=== PATIENT | female | born 1945 | race Caucasian/White ===

== ENCOUNTER 2016-09-11 14:15 | Inpatient (IN) | payer MEDICARE ==
[2016-09-03 21:07] LABS: ASCORBIC ACID (UR NOT ORDER) 40 (NEG); BILIRUBIN, URINE NEGATIVE (NEG); KETONE, URINE NEGATIVE (NEG); LEUKOCYTE ESTERASE(NOT OR SMALL (NEG); WBC (NOT ORDERED) (RFLEX) 4 (0-5)
[2016-09-03 21:25] LABS: BASOPHILS 0.4 %; BASOPHILS ABSOLUTE 0.03 10/3/uL (0.0-0.16); EOSINOPHILS 2.6 %; HEMATOCRIT 36.9 % (36.0-48.0); HEMOGLOBIN 12.2 g/dL (12.0-16.0); IMMATURE GRANULOCYTES 0.3 %; IMMATURE GRANULOCYTES ABSOLUTE 0.02 10/3/uL (0.0-0.11); LYMPHOCYTES 18.7 %; LYMPHOCYTES ABSOLUTE 1.42 10/3/uL (0.67-4.30); MANUAL DIFF NO %; MEAN CORPUS HGB CONC 33.1 g/dL (32.0-36.0); MEAN CORPUSCULAR HEMOGLOB 30.7 pg (26.0-34.0); MEAN CORPUSCULAR VOLUME 92.9 fL (80-100); MEAN PLATELET VOLUME 9.9 fL (9.2-13.0); MONOCYTES 8.8 %; MONOCYTES ABSOLUTE 0.67 10/3/uL (0.21-1.20); NEUTROPHILS 69.2 %; NEUTROPHILS ABSOLUTE 5.25 10/3/uL (2.02-8.40); PLATELET COUNT 307 10/3/uL (150-400); RBC DISTRIBUTION WIDTH 14.1 % (12.0-16.0); RED CELL COUNT 3.97 10/6/uL (4.0-5.6); WHITE BLOOD CELLS 7.6 10/3/uL (4.5-10.5)
[2016-09-03 21:32] LABS: PROTIME (NOT ORD) 13.1 SEC (12.0-14.5)
[2016-09-03 21:43] LABS: A/G RATIO 1.2 (0.7-1.9); ALBUMIN 4.1 G/DL (3.5-5.0); ALKALINE PHOSPHATASE 117 U/L (45-117); BUN (BLOOD UREA NITROGEN) 16 MG/DL (6-23); CALCIUM, SERUM 9.5 MG/DL (8.5-10.4); CHLORIDE, SERUM 93 MMOL/L (96-112); CO2 (CARBON DIOXIDE) 29 MMOL/L (24-34); CREATININE 1.09 MG/DL (0.55-1.02); GFR AFRICAN AMERICAN 60 ML/MIN (>=60); GFR NON AFRICAN AMERICAN 51 ML/MIN (>=60); GLOBULIN 3.5 G/DL (2.5-4.1); GLUCOSE, SERUM 91 MG/DL (60-99); POTASSIUM, SERUM 3.6 MMOL/L (3.5-5.3); SGOT(AST) 25 U/L (5-40); SGPT(ALT) 30 U/L (5-65); SODIUM, SERUM 137 MMOL/L (135-148); TOTAL BILIRUBIN 0.6 MG/DL (0-1.2); TOTAL PROTEIN 7.6 G/DL (6.0-8.5)
--- NOTE | ~2016-09-11 | DS ---
Discharge Summary [place] [id number] [facility] [place]. 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 2. Hypertension. 3. Osteoarthritis. 4. Cerebral palsy. 5. Sleep apnea. CONSULTATIONS: None. PROCEDURES PERFORMED: Right total knee revision arthroplasty on 09/11/2016. PATHOLOGY: Bone and soft tissue, right knee - orthopedic hardware, chronic reactive changes (no crystals). MEDICATIONS: Amitriptyline 150 mg at bedtime, Norvasc 10 mg at bedtime, vitamin C 1000 mg daily, Lipitor 10 mg at bedtime, Flexeril 10 mg three times a day, Restasis one drop twice a day in both, Caltrate plus D 600 mg twice a day, Colace 100 mg four times a day, Lovenox 30 mg subcutaneously twice a day, Pepcid 20 mg twice a day, ferrous sulfate 300 mg with breakfast and supper, levothyroxine one and a half tablets every morning, Carolyne 180 mg every morning, Hyzaar one tablet every morning, Mag-Ox 400 mg twice a day, Dolophine 10 mg three to four times per day, Theragran one tablet with breakfast, fish oil 1000 mg twice a day, Protonix 40 mg twice a day, MiraLAX powder one packet times a day as needed, Senokot two tablets at bedtime, Carafate 1 g before meals and at bedtime, Flomax 0.4 mg at bedtime, Dulera two puffs via inhaler twice a day as instructed, Mylanta 30 mL as needed, Dulcolax 15 mg as needed, [place] 7.5/325 one tablet every four hours as needed, milk of magnesia 30 mL as needed, Zofran 4 mg every four hours as needed, MiraLAX powder one packet twice a day as needed, Maxalt 10 mg as needed, ProAir two puffs via inhaler as needed, Ventolin two puffs via inhaler as needed, Forteo 20 mcg subcutaneously at bedtime, DuoNeb inhaled solution one nebulized inhaler twice a day as needed, vitamin E 400 units at bedtime, Breo Ellipta one puff via inhaler every morning, Gas Gone one tablet as needed, Phazyme one tablet daily and as needed. CONDITION AT DISCHARGE: Stable. DISPOSITION: The patient was discharged to [facility] with diet and activities as instructed. HOSPITAL COURSE: This is a 71-year-old female who has been followed status post right total knee revision arthroplasty in May of 2014. The patient says that her pain was moderately worse. She was felt to have right knee failed total knee arthroplasty. Treatment options were discussed and it was elected to proceed with surgical intervention. She was admitted to the hospital at this time for further evaluation and treatment. Upon admission, she was taken to the operating room where she underwent the above-mentioned procedure. She tolerated this well, and there were no complications. On postop day #1, she Discharge Summary [address] [address] NAME: CATRINA FERNANDEZ : 47 STATUS : DIS IN PAT#: [id number] AGE: 71 ADM/REG DATE : 09/11/16 MR#: [id number] REPORT SERV DATE: 09/25/16 DICTATED BY: PERFECTO HARRISON DATE: 09/24/16 REPORT STATUS : Draft TRANSCRIBED BY: ARABELLA DATE: 09/24/16 was up sitting in a bedside chair. GREG hose were in place. Blood pressure was controlled. She was evaluated by Occupational and Physical Therapy. On 09/13/2016, she did complain of some weakness and fatigue. The patient does have cerebral palsy. She had normal distal pulses. Her dressings were clean, dry, and intact. On 09/14/2016, she was up sitting in a bedside chair. She said she was doing better. She did have a bowel movement. We encouraged her to mobilize with Physical Therapy. Blood pressure was controlled. She continued to progress. Discharge planning was performed. She had been transfused. Methadone was continued for her chronic pain. Discharge planning was performed. On 09/16/2016, she continued to do well. Discharge instructions were given. Due to her improved and stable condition, she was discharged to [facility] with the above stated instructions. Information collected by: Kandace Story I submit the above information as my discharge summary. BRANNON/ARABELLA Casey Harrison M.D. / [id number] CC: Key Mcconnell M.D. [facility]
--- NOTE | ~2016-09-11 | OP ---
Record Of Operation [facility] [address] [place]. [address] NAME: CATRINA FERNANDEZ : 47 STATUS : DIS IN PAT#: [id number] AGE: 71 ADM/REG DATE : 09/11/16 MR#: [id number] REPORT SERV DATE: 09/17/16 DICTATED BY: PERFECTO HARRISON DATE: 09/17/16 REPORT STATUS : Draft TRANSCRIBED BY: MODL DATE: 09/17/16 DATE OF PROCEDURE: 09/11/2016 PREOPERATIVE DIAGNOSIS: Right knee failed total knee arthroplasty. POSTOPERATIVE DIAGNOSIS: Right knee failed total knee arthroplasty. PROCEDURE: Right total knee revision arthroplasty. SURGEON: Casey Harrison M.D. BRIAR CUTTER: See chart. DESCRIPTION OF PROCEDURE: The patient was taken to the operating room and placed in supine on the table in normal fashion without incident. General anesthetic was induced per the anesthesiologist. The patient was carefully positioned, padded, prepped, and draped in normal sterile fashion. Right lower extremity was exsanguinated and tourniquet inflated to 350. Examination of the knee revealed gross medial and lateral instability with loss of soft tissue strength. The knee was brought up into flexion, and tibial and femoral components were removed with a combination of osteotomes, rongeurs, etc. Sequential reamers were used in the femur and tibia. Intramedullary guides used to cut the distal femur and all the distal femoral cuts. With trial components in place, there was excellent re- creation of leg lengths and soft tissue. The patella was absent with minimal bone that was debrided from the patellar tendon. All surfaces were then copiously irrigated with pulsatile lavage. The components were assembled on the back table and antibiotic premixed cement was pressurized in the tibia. Tibial component placed, impacted, and excess cement removed. Cement was pressurized in the femur and placed on the posterior runners. The femoral component was placed, impacted, and excess cement removed. Knee brought out in extension on a trial spacer. Once all cement was hardened, knee was taken through range of motion. Further extruded cement was removed with a small osteotome. The actual insert was chosen and placed and held with a locking pin that was clamped into position. This gave excellent flexion, extension, and recreation of leg length. The wound was then copiously irrigated and then closed in a layered fashion over a medium ConstaVac drain superolaterally. The wound was dressed sterilely. The patient was awakened and taken to the postanesthesia care unit without incident. COMPLICATIONS: None. SPECIMENS REMOVED: Components and cultures. ESTIMATED BLOOD LOSS: Trace. LUIS/ARABELLA Record Of [address] [address] NAME: CATRINA FERNANDEZ : 47 STATUS : DIS IN PAT#: [id number] AGE: 71 ADM/REG DATE : 09/11/16 MR#: [id number] REPORT SERV DATE: 09/17/16 DICTATED BY: PERFECTO HARRISON DATE: 09/17/16 REPORT STATUS : Draft TRANSCRIBED BY: ARABELLA DATE: 09/17/16 Casey Harrison M.D. / [id number] CC: Key Mcconnell M.D.
[~2016-09-11 14:15] MED LIST: ACCUNEB INH; ALLEGRA180 PO; AMB10 PO; AMITRIPTYLIN150 MG PO; ASAB PO; BREO ELLIPTA INH; CALTRA600D PO; CELEBREX2 PO; CENTRUM PO; CLARIT10 PO; DEXILANT OR; DOLOPHINE10 MG PO; DSS PO; DUONEB INH; ENDOCET1 TA3 PO; ESTRACE0.5 MG PO; FISH-EPA1000 MG PO; FLEX PO; FLOMAX4 PO; FORTEO SC; HYZAAR 100/25 T1 TAB PO; HYZAAR1 TAB PO; KAPIDEX60 MG PO; LEVOTHYROXIN75 MCG PO; LIMBREL500 MG OR; LIPITOR10 PO; MAGOX4 PO; MAXALT10 MG PO; METHATAB10 PO; MIRALAX POWDER1 PKT PO; MIRALAXPKT PO; NORV10 PO; PR25 PO; PREVAGEN PO; PROAIRRESP INH; PROTONIX PO; RANITIDINE300 MG PO; RESTASIS OPH; SUCR PO; SYMBICORT 160/41 INH INH; VITAMIN D31000 UNIT PO; VITC500 PO; VITE PO; [UNRECOGNIZED DRUG - OTHER] PO; [UNRECOGNIZED DRUG - OTHER] PO
[2016-09-12 05:16] LABS: HEMOGLOBIN 10.9 g/dL (12.0-16.0)
[2016-09-12 05:22] LABS: INTERNATIONAL NORMAL RATI 1.1 UNITS (-)
[2016-09-12 05:25] LABS: HEMATOCRIT 32.6 % (36.0-48.0)
[2016-09-12 05:33] LABS: CALCIUM, SERUM 8.8 MG/DL (8.5-10.4); CHLORIDE, SERUM 100 MMOL/L (96-112); CO2 (CARBON DIOXIDE) 28 MMOL/L (24-34); CREATININE 0.88 MG/DL (0.55-1.02); GFR AFRICAN AMERICAN 77 ML/MIN (>=60); GFR NON AFRICAN AMERICAN 67 ML/MIN (>=60); POTASSIUM, SERUM 3.3 MMOL/L (3.5-5.3); SODIUM, SERUM 139 MMOL/L (135-148)
[2016-09-12 05:34] LABS: BUN (BLOOD UREA NITROGEN) 11 MG/DL (6-23); GLUCOSE, SERUM 137 MG/DL (60-99)
[2016-09-13 05:59] LABS: INTERNATIONAL NORMAL RATI 1.1 UNITS (-); PROTIME (NOT ORD) 14.3 SEC (12.0-14.5)
[2016-09-13 06:01] LABS: HEMATOCRIT 23.5 % (36.0-48.0); HEMOGLOBIN 7.9 g/dL (12.0-16.0)
[2016-09-13 06:05] LABS: CALCIUM, SERUM 8.6 MG/DL (8.5-10.4); CHLORIDE, SERUM 102 MMOL/L (96-112); CO2 (CARBON DIOXIDE) 31 MMOL/L (24-34); CREATININE 0.92 MG/DL (0.55-1.02); GFR AFRICAN AMERICAN 73 ML/MIN (>=60); GFR NON AFRICAN AMERICAN 63 ML/MIN (>=60); GLUCOSE, SERUM 114 MG/DL (60-99); POTASSIUM, SERUM 4.1 MMOL/L (3.5-5.3); SODIUM, SERUM 138 MMOL/L (135-148)
[2016-09-13 06:07] LABS: BUN (BLOOD UREA NITROGEN) 15 MG/DL (6-23)
[2016-09-14 05:03] LABS: BASOPHILS 0.4 %; BASOPHILS ABSOLUTE 0.02 10/3/uL (0.0-0.16); EOSINOPHILS 2.8 %; EOSINOPHILS ABSOLUTE 0.16 10/3/uL (0.0-0.53); IMMATURE GRANULOCYTES 0.2 %; IMMATURE GRANULOCYTES ABSOLUTE 0.01 10/3/uL (0.0-0.11); LYMPHOCYTES 22.7 %; LYMPHOCYTES ABSOLUTE 1.28 10/3/uL (0.67-4.30); MEAN CORPUS HGB CONC 34.2 g/dL (32.0-36.0); MEAN CORPUSCULAR HEMOGLOB 31.6 pg (26.0-34.0); MEAN CORPUSCULAR VOLUME 92.4 fL (80-100); MEAN PLATELET VOLUME 9.8 fL (9.2-13.0); MONOCYTES 10.8 %; MONOCYTES ABSOLUTE 0.61 10/3/uL (0.21-1.20); NEUTROPHILS 63.1 %; NEUTROPHILS ABSOLUTE 3.56 10/3/uL (2.02-8.40); RBC DISTRIBUTION WIDTH 15.9 % (12.0-16.0); WHITE BLOOD CELLS 5.6 10/3/uL (4.5-10.5)
[2016-09-14 05:04] LABS: HEMATOCRIT 27.8 % (36.0-48.0); HEMOGLOBIN 9.5 g/dL (12.0-16.0); PLATELET COUNT 160 10/3/uL (150-400); RED CELL COUNT 3.01 10/6/uL (4.0-5.6)
[2016-09-14 05:05] LABS: MANUAL DIFF NO %
[2016-09-14 05:07] LABS: INTERNATIONAL NORMAL RATI 1.1 UNITS (-); PROTIME (NOT ORD) 14.4 SEC (12.0-14.5)
[2016-09-14 05:14] LABS: CALCIUM, SERUM 8.6 MG/DL (8.5-10.4); CHLORIDE, SERUM 103 MMOL/L (96-112); CO2 (CARBON DIOXIDE) 30 MMOL/L (24-34); CREATININE 0.74 MG/DL (0.55-1.02); GFR AFRICAN AMERICAN 95 ML/MIN (>=60); GFR NON AFRICAN AMERICAN 82 ML/MIN (>=60); GLUCOSE, SERUM 105 MG/DL (60-99); POTASSIUM, SERUM 3.8 MMOL/L (3.5-5.3); SODIUM, SERUM 141 MMOL/L (135-148)
[2016-09-14 05:15] LABS: BUN (BLOOD UREA NITROGEN) 10 MG/DL (6-23)
[2016-09-15 05:55] LABS: HEMATOCRIT 26.2 % (36.0-48.0); HEMOGLOBIN 8.6 g/dL (12.0-16.0)
[2016-09-15 06:02] LABS: INTERNATIONAL NORMAL RATI 1.1 UNITS (-); PROTIME (NOT ORD) 13.8 SEC (12.0-14.5)
[2016-09-16 04:51] LABS: HEMATOCRIT 25.5 % (36.0-48.0); HEMOGLOBIN 8.3 g/dL (12.0-16.0)
[2016-09-16 04:58] LABS: PROTIME (NOT ORD) 13.5 SEC (12.0-14.5)
== END 2016-09-16 18:18 | DRG 467 ==
LOC: SDC/OF 14:15 → PACU 19:43 → 3SO 21:03
PROVIDERS: Nurse Practitioner; Specialist
PROC: 0SPC09Z Removal of Liner from Right Knee Joint, Open Approach (ICD-10-PCS; 2016-09-11)
PROC: 0SPC0JZ Removal of Synthetic Substitute from Right Knee Joint, Open Approach (ICD-10-PCS; 2016-09-11)
PROC: 0SUC09Z Supplement Right Knee Joint with Liner, Open Approach (ICD-10-PCS; 2016-09-11)
PROC: 0SRC0J9 Replacement of Right Knee Joint with Synthetic Substitute, Cemented, Open Approach (ICD-10-PCS; principal; 2016-09-11 15:45)
PROC: 30233N1 Transfusion of Nonautologous Red Blood Cells into Peripheral Vein, Percutaneous Approach (ICD-10-PCS; 2016-09-13)
DX: T84.092A Other mechanical complication of internal right knee prosthesis, initial encounter (principal); D62 Acute posthemorrhagic anemia; J44.9 Chronic obstructive pulmonary disease, unspecified; F41.9 Anxiety disorder, unspecified; I10 Essential (primary) hypertension; E78.5 Hyperlipidemia, unspecified; E03.9 Hypothyroidism, unspecified; K21.9 Gastro-esophageal reflux disease without esophagitis
CPT/HCPCS: 36415; 80048; 80053; 81001; 84132; 85014; 85018; 85025; 85610; 86850; 86900; 86901; 86920; 87015; 87070; 87075; 87086; 87102; 87116; 87205; 88300; 88304; 88311; 94640; 97110-GP; 97116-GP; 97162-GP; 97165-GO; A9270-GY; C1776; G8978-CL-GP; G8979-CJ-GP; J0330; J0690; J1885; J2250; J2274; J2370; J2405; J2550; J2710; J2795; J3010; P9016